=== PATIENT | male | born 1970 | race Asian ===

== ENCOUNTER 2019-02-07 04:44 | Emergency (ER) | payer OTHER, SELFPAY ==
[~2019-02-07] VITALS: Ht 177.8 cm; Wt 77.3 kg
[2019-02-07 04:44] VITALS: BP 138/85
== END 2019-02-07 06:20 | disposition home or self-care (01) ==
LOC: M ED 04:44
DX: F06.2 Psychotic disorder with delusions due to known physiological condition (principal); F17.200 Nicotine dependence, unspecified, uncomplicated